=== PATIENT | female | born 1985 | race American Indian/Alaskan Native ===

== ENCOUNTER 2017-05-10 05:48 | Emergency (ER) | payer BC, MEDICAID ==
[2017-05-10] MEDS ORDERED: TYLENOL ONE (05:58)
[2017-05-10 06:23] LABS: Basophils % (Auto) 0.3 % (0.0-1.8); Eosinophils # (Auto) 0.2 K/mm3 (0.0-0.4); Hematocrit 40.4 % (30.3-42.9); Hemoglobin 13.2 gm/dl (10.1-14.3); Lymphocytes # (Auto) 2.4 K/mm3 (1.2-5.4); Lymphocytes % (Auto) 27.6 % (13.4-35.0); Mean Corpuscular HGB Conc 33 % (30-34); Mean Corpuscular Hemoglobin 27 pg (28-32); Mean Corpuscular Volume 82 fl (79-97); Monocytes # (Auto) 0.6 K/mm3 (0.0-0.8); Monocytes % (Auto) 6.4 % (0.0-7.3); Platelet Count 258 K/mm3 (140-440); Red Blood Count 4.92 M/mm3 (3.65-5.03)
[2017-05-10 06:40] LABS: Bilirubin,Urine NEG (Negative); Blood,Urine NEG (Negative); Color,Urine Yellow (Yellow); Mucus,Urine FEW /HPF; Protein,Urine <15 mg/dL mg/dL (Negative); Urobilinogen,Urine < 2.0 mg/dL (<2.0)
[2017-05-10 06:40] LABS: Alanine Aminotransferase 12 units/L (7-56); BUN/Creatinine Ratio 19; Blood Urea Nitrogen 13 mg/dL (7-17); Hemolysis Index 19
--- NOTE | 2017-05-10 11:52 | Emergency Department Report ---
ED Abdominal Pain HPI - General Chief Complaint: Abdominal Pain Stated Complaint: STOMACH PAIN Time Seen by Provider: 05/10/17 11:45 Source: patient Mode of arrival: Ambulatory Limitations: No Limitations - History of Present Illness Initial Comments: Patient complains of the onset mild to moderate left lower quadrant discomfort this a.m. Her menses is late. She is status post tubal ligation. She denies any acute onset pain, nausea, diarrhea or vomiting. She's had no fever or chills. No vaginal discharge no symptoms. The pain has improved over time. She states that it actually was on both sides of her pelvis but mostly on the left side. MD Complaint: abdominal pain -: Gradual Location: LLQ, RLQ Radiation: none Migration to: no migration Severity: moderate Quality: sharp Consistency: now resolved (largely resolved) Improves With: nothing Worsens With: nothing Associated Symptoms: denies other symptoms - Related Data Previous Rx's Medication Instructions Recorded Last Taken Type metroNIDAZOLE [Flagyl TAB] 500 mg PO Q12HR #14 tab 02/09/15 Unknown Rx Ibuprofen [Motrin 600 MG tab] 600 mg PO Q8H PRN #30 tablet 02/24/15 Unknown Rx methOCARBAMOL [Robaxin TAB] 500 mg PO BID #20 tab 02/24/15 Unknown Rx traMADol [Ultram] 50 mg PO Q6HR PRN #10 tablet 05/10/17 Unknown Rx Allergies Allergy/AdvReac Type Severity Reaction Status Date / Time No Known Allergies Allergy Verified 02/08/15 23:35 ED Review of Systems ROS: Stated complaint: STOMACH PAIN Other details as noted in HPI Constitutional: denies: chills, fever Eyes: denies: eye pain, eye discharge, vision change ENT: denies: ear pain, throat pain Respiratory: denies: cough, shortness of breath, wheezing Cardiovascular: denies: chest pain, palpitations Endocrine: no symptoms reported Gastrointestinal: abdominal pain. denies: nausea, diarrhea Genitourinary: denies: urgency, dysuria, discharge Musculoskeletal: denies: back pain, joint swelling, arthralgia Skin: denies: rash, lesions Neurological: denies: headache, weakness, paresthesias Psychiatric: denies: anxiety, depression Hematological/Lymphatic: denies: easy bleeding, easy bruising ED Past Medical Hx - Past Medical History Previous Medical History?: No - Surgical History Past Surgical History?: Yes Additional Surgical History: TUBAL LIGATION - Social History Smoking Status: Never Smoker Substance Use Type: None - Medications Home Medications: Home Medications Medication Instructions Recorded Confirmed Last Taken Type metroNIDAZOLE [Flagyl TAB] 500 mg PO Q12HR #14 tab 02/09/15 Unknown Rx Ibuprofen [Motrin 600 MG tab] 600 mg PO Q8H PRN #30 tablet 02/24/15 Unknown Rx methOCARBAMOL [Robaxin TAB] 500 mg PO BID #20 tab 02/24/15 Unknown Rx traMADol [Ultram] 50 mg PO Q6HR PRN #10 tablet 05/10/17 Unknown Rx ED Physical Exam - General Limitations: No Limitations General appearance: alert, in no apparent distress - Head Head exam: Present: atraumatic, normocephalic - Eye Eye exam: Present: normal appearance. Absent: scleral icterus - ENT ENT exam: Present: mucous membranes moist - Neck Neck exam: Present: normal inspection - Respiratory Respiratory exam: Present: normal lung sounds bilaterally. Absent: respiratory distress - Cardiovascular Cardiovascular Exam: Present: regular rate, normal rhythm. Absent: systolic murmur, diastolic murmur, rubs, gallop - GI/Abdominal GI/Abdominal exam: Present: soft, normal bowel sounds. Absent: distended, tenderness, guarding, rebound, rigid, organomegaly, mass, bruit, pulsatile mass , hernia - Extremities Exam Extremities exam: Present: normal inspection - Back Exam Back exam: Present: normal inspection - Neurological Exam Neurological exam: Present: alert, oriented X3, CN II-XII intact. Absent: motor sensory deficit - Psychiatric Psychiatric exam: Present: normal affect, normal mood - Skin Skin exam: Present: warm, dry, intact, normal color. Absent: rash ED Course Vital Signs 05/10/17 05:56 Temperature 98.5 F Pulse Rate 82 Respiratory 16 Rate Blood Pressure 112/80 [Left] O2 Sat by Pulse 98 Oximetry - Reevaluation(s) Reevaluation #1: Laboratory workup is benign as well as the exam. 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 05/10/17 12:02 ED Medical Decision Making - Lab Data Result diagrams: 05/10/17 06:01 05/10/17 06:01 Laboratory Results - last 24 hr 05/10/17 05/10/17 05/10/17 06:01 06:01 06:01 WBC 8.8 RBC 4.92 Hgb 13.2 Hct 40.4 MCV 82 MCH 27 L MCHC 33 RDW 14.0 Plt Count 258 Lymph % (Auto) 27.6 [place] % (Auto) 6.4 Eos % (Auto) 2.0 Baso % (Auto) 0.3 Lymph # 2.4 [place] # 0.6 Eos # 0.2 Baso # 0.0 Seg Neutrophils % 63.7 Seg Neutrophils # 5.6 Sodium 140 Potassium 4.2 Chloride 99.9 Carbon Dioxide 27 Anion Gap 17 BUN 13 Creatinine 0.7 Estimated GFR > 60 BUN/Creatinine Ratio 19 Glucose 91 Calcium 9.0 Total Bilirubin 0.30 AST 16 ALT 12 Alkaline Phosphatase 46 Total Protein 7.8 Albumin 4.0 Albumin/Globulin Ratio 1.1 HCG, Qual Negative Urine Color Urine Turbidity Urine pH Ur Specific [place] Urine Protein Urine Glucose (UA) Urine Ketones Urine Blood Urine Nitrite Urine Bilirubin Urine Urobilinogen Ur Leukocyte Esterase Urine WBC (Auto) Urine RBC (Auto) U Epithel Cells (Auto) Urine Mucus 05/10/17 06:20 WBC RBC Hgb Hct MCV MCH MCHC RDW Plt Count Lymph % (Auto) [place] % (Auto) Eos % (Auto) Baso % (Auto) Lymph # [place] # Eos # Baso # Seg Neutrophils % Seg Neutrophils # Sodium Potassium Chloride Carbon Dioxide Anion Gap BUN Creatinine Estimated GFR BUN/Creatinine Ratio Glucose Calcium Total Bilirubin AST ALT Alkaline Phosphatase Total Protein Albumin Albumin/Globulin Ratio HCG, Qual Urine Color Yellow Urine Turbidity Clear Urine pH 6.0 Ur Specific [place] 1.026 Urine Protein <15 mg/dl Urine Glucose (UA) Neg Urine Ketones Neg Urine Blood Neg Urine Nitrite Neg Urine Bilirubin Neg Urine Urobilinogen < 2.0 Ur Leukocyte Esterase Sm Urine WBC (Auto) 3.0 Urine RBC (Auto) 1.0 U Epithel Cells (Auto) 4.0 Urine Mucus Few Critical care attestation.: If time is entered above; I have spent that time in minutes in the direct care of this critically ill patient, excluding procedure time. ED Disposition Clinical Impression: Abdominal pain Qualifiers: Abdominal location: lower abdomen, unspecified Qualified Code(s): R10.30 - Lower abdominal pain, unspecified Disposition: TO HOME OR SELFCARE Is pt being admited?: No Does the pt Need Aspirin: No Condition: Stable Instructions: Abdominal Pain (ED) Additional Instructions: Return if any increased pain, fever or chills, nausea or vomiting. Otherwise follow-up with her club lounge attendant. Prescriptions: traMADol [Ultram] 50 mg PO Q6HR PRN #10 tablet PRN Reason: Pain Referrals: MARY LUDWIG MD [Primary Care Provider] - 3-5 Days usual, club lounge attendant [Other] - 2-3 Days Time of Disposition: 12:03
[2017-05-10 12:19] VITALS: BP 107/70
== END 2017-05-10 12:52 | disposition home or self-care (01) ==
LOC: ED 05:48
DX: R10.32 Left lower quadrant pain (principal); Z98.51 Tubal ligation status
CPT/HCPCS: 36415; 80053; 81001; 84703; 85025; 99283

== ENCOUNTER 2018-08-04 08:41 | Emergency (ER) | payer MEDICAID, OTHER ==
[2018-08-04 08:50] VITALS: BP 122/80
--- NOTE | 2018-08-04 11:22 | Emergency Department Report ---
ED Female HPI - General Chief complaint: Vaginal Bleeding Stated complaint: SPOTTING Time Seen by Provider: 08/04/18 11:03 Source: patient Mode of arrival: Ambulatory Limitations: No Limitations - History of Present Illness Initial comments: 32-year-old -[place] female comes to the emergency room for irregular periods. Patient states she spotting since her last menstrual period which was 07/15/2018. Patient denies filling up pad. She has a primary care provider at [facility] but currently her insurance is not valid so therefore she came to be evaluated here in the emergency room. Patient reports she's had a tubal ligation. Patient denies any pelvic or abdominal pain. She has no past medical history takes no medications on a daily basis and has no known drug allergies. Complaint: other (vaginal spotting) Onset/Timin -: week(s) Severity scale (0 -10): 0 Are you Now?: No Last Menstrual Period: 07/15/18 EDC: 04/21/19 Associated Symptoms: denies other symptoms - Related Data Sexually active: Yes Previous Rx's Medication Instructions Recorded Last Taken Type metroNIDAZOLE [Flagyl TAB] 500 mg PO Q12HR #14 tab 02/09/15 Unknown Rx Ibuprofen [Motrin 600 MG tab] 600 mg PO Q8H PRN #30 tablet 02/24/15 Unknown Rx methOCARBAMOL [Robaxin TAB] 500 mg PO BID #20 tab 02/24/15 Unknown Rx traMADol [Ultram] 50 mg PO Q6HR PRN #10 tablet 05/10/17 Unknown Rx Allergies Allergy/AdvReac Type Severity Reaction Status Date / Time No Known Allergies Allergy Verified 02/08/15 23:35 ED Review of Systems ROS: Stated complaint: SPOTTING Other details as noted in HPI Comment: All other systems reviewed and negative ED Past Medical Hx - Past Medical History Previous Medical History?: No - Surgical History Past Surgical History?: Yes Additional Surgical History: TUBAL LIGATION - Social History Smoking Status: Never Smoker Substance Use Type: None - Medications Home Medications: Home Medications Medication Instructions Recorded Confirmed Last Taken Type metroNIDAZOLE [Flagyl TAB] 500 mg PO Q12HR #14 tab 02/09/15 Unknown Rx Ibuprofen [Motrin 600 MG tab] 600 mg PO Q8H PRN #30 tablet 02/24/15 Unknown Rx methOCARBAMOL [Robaxin TAB] 500 mg PO BID #20 tab 02/24/15 Unknown Rx traMADol [Ultram] 50 mg PO Q6HR PRN #10 tablet 05/10/17 Unknown Rx ED Physical Exam - General Limitations: No Limitations General appearance: alert, in no apparent distress - Head Head exam: Present: atraumatic, normocephalic - Eye Eye exam: Present: normal appearance - ENT ENT exam: Present: mucous membranes moist - Neck Neck exam: Present: normal inspection - Respiratory Respiratory exam: Present: normal lung sounds bilaterally. Absent: respiratory distress - Cardiovascular Cardiovascular Exam: Present: regular rate, normal rhythm. Absent: systolic murmur, diastolic murmur, rubs, gallop - GI/Abdominal GI/Abdominal exam: Present: soft, normal bowel sounds - Extremities Exam Extremities exam: Present: normal inspection - Back Exam Back exam: Present: normal inspection - Neurological Exam Neurological exam: Present: alert, oriented X3 - Psychiatric Psychiatric exam: Present: normal affect, normal mood - Skin Skin exam: Present: warm, dry, intact, normal color. Absent: rash ED Course Vital Signs 08/04/18 08/04/18 08:44 08:47 Temperature 98.0 F 98.4 F Pulse Rate 91 H Respiratory 16 Rate Blood Pressure 122/80 O2 Sat by Pulse 99 Oximetry ED Medical Decision Making - Radiology Data Radiology results: report reviewed - Medical Decision Making 32-year-old female comes in for irregular. Since spotting. test was negative. Patient has no abdominal pain. Discussed the patient she can follow up at [facility]. Patient verbalized understanding. Critical care attestation.: If time is entered above; I have spent that time in minutes in the direct care of this critically ill patient, excluding procedure time. ED Disposition Clinical Impression: Vaginal spotting Disposition: DC-01 TO HOME OR SELFCARE Is pt being admited?: No Does the pt Need Aspirin: No Condition: Stable Instructions: Menstruation (ED) Additional Instructions: Follow-up with [facility]. test negative. Referrals: PRIMARY CARE, [Primary Care Provider] - 3-5 Days [facility] [Provider Group] - 3-5 Days
== END 2018-08-04 11:29 | disposition home or self-care (01) ==
LOC: ED 08:41
DX: N93.9 Abnormal uterine and vaginal bleeding, unspecified (principal); Z98.51 Tubal ligation status; Z79.899 Other long term (current) drug therapy
CPT/HCPCS: 36415; 84703; 99283

== ENCOUNTER 2019-10-27 05:34 | Emergency (ER) | payer OTHER ==
[2019-10-27 05:43] VITALS: BP 112/76
[2019-10-27 06:35] LABS: Bilirubin,Urine NEG (Negative); Blood,Urine NEG (Negative); Color,Urine Yellow (Yellow); Mucus,Urine FEW /HPF; Protein,Urine <15 mg/dL mg/dL (Negative); Urobilinogen,Urine < 2.0 mg/dL (<2.0)
[2019-10-27 07:05] LABS: Basophils % (Auto) 0.3 % (0.0-1.8); Eosinophils # (Auto) 0.1 K/mm3 (0.0-0.4); Eosinophils % (Auto) 1.4 % (0.0-4.3); Hematocrit 39.9 % (30.3-42.9); Hemoglobin 13.1 gm/dl (10.1-14.3); Lymphocytes # (Auto) 1.9 K/mm3 (1.2-5.4); Lymphocytes % (Auto) 27.5 % (13.4-35.0); Mean Corpuscular HGB Conc 33 % (30-34); Mean Corpuscular Volume 87 fl (79-97); Monocytes # (Auto) 0.5 K/mm3 (0.0-0.8); Monocytes % (Auto) 7.1 % (0.0-7.3); Platelet Count 250 K/mm3 (140-440); Red Cell Distribution Width 14.4 % (13.2-15.2)
[2019-10-27 07:21] LABS: Alanine Aminotransferase 16 units/L (7-56); Albumin 4.2 g/dL (3.9-5); Blood Urea Nitrogen 9 mg/dL (7-17); Calcium 9.4 mg/dL (8.4-10.2); Hemolysis Index 3
[2019-10-27 07:35] LABS: BUN/Creatinine Ratio 13
[2019-10-27] MEDS ORDERED: KETOROLAC 30 MG/1 ML INJ IM ONE (08:00)
--- NOTE | 2019-10-27 08:12 | Emergency Department Report ---
ED Back Pain/Injury HPI - General Chief Complaint: Abdominal Pain Stated Complaint: RT SIDE BACK AND SIDE PAIN Time Seen by Provider: 10/27/19 07:34 Source: patient Limitations: No Limitations - History of Present Illness Initial Comments: 34-year-old -[place]og[place] female presents to the emergency room complaining of intermittent right flank pain that started 3 days ago. Patient states it is sharp and throbbing. She states that it has become constant. Patient denies any nausea no vomiting she denies any dysuria vaginal bleeding or vaginal discharge. Patient states that nothing makes it better what makes it worse is lying down and getting up or twisting. Patient denies any radiation of pain. She denies any injury. 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 Patient reports that she took ibuprofen x1 dose yesterday. Patient reports in the past she had taking a muscle relaxant which that had help. Patient's last menstrual period was October 18, 2019. MD Complaint: back pain Onset/Timin -: days(s) Similar Symptoms Previously: Yes Severity scale (0 -10): 10 Quality: sharp, aching Consistency: constant Improves With: none Worsens With: movement Associated Symptoms: denies other symptoms - Related Data Previous Rx's Medication Instructions Recorded Last Taken Type metroNIDAZOLE [Flagyl TAB] 500 mg PO Q12HR #14 tab 02/09/15 Unknown Rx Ibuprofen [Motrin 600 MG tab] 600 mg PO Q8H PRN #30 tablet 02/24/15 Unknown Rx traMADoL [Ultram] 50 mg PO Q6HR PRN #10 tablet 05/10/17 Unknown Rx Naproxen 500 mg PO BID PRN #20 tablet 10/27/19 Unknown Rx methOCARBAMOL [Robaxin TAB] 500 mg PO BID #20 tab 10/27/19 Unknown Rx Allergies Allergy/AdvReac Type Severity Reaction Status Date / Time No Known Allergies Allergy Verified 02/08/15 23:35 ED Review of Systems ROS: Stated complaint: RT SIDE BACK AND SIDE PAIN Other details as noted in HPI ED Past Medical Hx - Past Medical History Previous Medical History?: No - Surgical History Past Surgical History?: Yes Additional Surgical History: TUBAL LIGATION - Social History Smoking Status: Never Smoker Substance Use Type: None - Medications Home Medications: Home Medications Medication Instructions Recorded Confirmed Last Taken Type metroNIDAZOLE [Flagyl TAB] 500 mg PO Q12HR #14 tab 02/09/15 Unknown Rx Ibuprofen [Motrin 600 MG tab] 600 mg PO Q8H PRN #30 tablet 02/24/15 Unknown Rx traMADoL [Ultram] 50 mg PO Q6HR PRN #10 tablet 05/10/17 Unknown Rx Naproxen 500 mg PO BID PRN #20 tablet 10/27/19 Unknown Rx methOCARBAMOL [Robaxin TAB] 500 mg PO BID #20 tab 10/27/19 Unknown Rx ED Physical Exam - General Limitations: No Limitations General appearance: alert, in no apparent distress - Head Head exam: Present: atraumatic, normocephalic - ENT ENT exam: Present: mucous membranes moist - Neck Neck exam: Present: normal inspection - Respiratory Respiratory exam: Present: normal lung sounds bilaterally - Cardiovascular Cardiovascular Exam: Present: regular rate - Extremities Exam Extremities exam: Present: normal inspection - Back Exam Back exam: Present: muscle spasm - Neurological Exam Neurological exam: Present: alert, oriented X3, normal gait - Psychiatric Psychiatric exam: Present: normal affect, normal mood - Skin Skin exam: Present: warm, dry, intact, normal color. Absent: rash ED Course Vital Signs 10/27/19 05:41 Temperature 97.8 F Pulse Rate 77 Respiratory 16 Rate Blood Pressure 112/76 O2 Sat by Pulse 100 Oximetry ED Medical Decision Making - Lab Data Result diagrams: 10/27/19 06:25 10/27/19 06:25 - Medical Decision Making 34-year-old -[place] female presents to the emergency room complaining of intermittent right flank pain that started 3 days ago. Patient states it is sharp and throbbing. She states that it has become constant. Patient denies any nausea no vomiting she denies any dysuria vaginal bleeding or vaginal discharge. Patient states that nothing makes it better what makes it worse is lying down and getting up or twisting. Patient denies any radiation of pain. She denies any injury. 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 Patient reports that she took ibuprofen x1 dose yesterday. Patient reports in the past she had taking a muscle relaxant which that had help. Patient's last menstrual period was October 18, 2019. Patient is given a Toradol injection of 30 mg IM. Patient will be discharged home on Robaxin and naproxen. She can follow-up with the primary care provider. Critical care attestation.: If time is entered above; I have spent that time in minutes in the direct care of this critically ill patient, excluding procedure time. ED Disposition Clinical Impression: Lumbar radiculopathy, Lumbar back pain Disposition: TO HOME OR SELFCARE Is pt being admited?: No Does the pt Need Aspirin: No Condition: Stable Instructions: Acute Low Back Pain (ED), Lumbar Radiculopathy (ED) Additional Instructions: All labs are stable shows no concerns for any infection. You have a muscle strain. Please take muscle relaxant and pain medication. Be sure to increase your fluid intake while taking medication. Do not operate heavy machinery while taking Robaxin. I recommend following up with a primary care provider. Prescriptions: Naproxen 500 mg PO BID PRN #20 tablet PRN Reason: Pain , Severe (7-10) methOCARBAMOL [Robaxin TAB] 500 mg PO BID #20 tab Referrals: PRIMARY CARE, [Primary Care Provider] - 3-5 Days [facility] [Provider Group] - 3-5 Days Forms: Work/School Release Form(ED)
== END 2019-10-27 08:25 | disposition home or self-care (01) ==
LOC: ED 05:34
DX: M54.16 Radiculopathy, lumbar region (principal); Z98.51 Tubal ligation status; Z79.899 Other long term (current) drug therapy
CPT/HCPCS: 36415; 80053; 81001; 84703; 85025; 96372; 99283; J1885